=== PATIENT | male | born 1945 | race Caucasian/White ===

== ENCOUNTER → 2019-12-10 | Outpatient (CLI) | payer OTHER ==
[~2019-12-10] MED LIST: AZOPT OPHTH1 %/10 M1 EA. EYE; CLARITIN10 M3 PO; COUMADIN7.5 MG PO; D3-200050 MCG PO; DORYX MPC120 MG PO; FLOMAX0.4 MG PO; GLUCOPHAGE1000 MG PO; ISORDIL10 MG PO; KLOR-CON M2020 MEQ PO; LANTUS SUBQ; LIPITOR40 MG PO; LISINOPRIL2.5 MG PO; PLAVIX 75 MG TA75 MG PO; PRADAXA150 MG PO; PREDNISONE 5 MG5 M1 PO; PROAIR HFA8.5 GM INH; SYMBICORT80 MCG/4.1 INH; TOPROL XL25 MG PO
[2019-12-10 09:02] LABS: HEMATOCRIT 45.2 % (42.0-52.0); HEMOGLOBIN 14.6 gm/dL (14.0-18.0); MCHC 32.3 g/dL (28.0-37.0); MCV 89.9 fL (80.0-100.0); RBC 5.02 mil/uL (4.50-6.00); WBC 12.8 thou/uL (4.0-11.0)
[2019-12-10 09:17] LABS: ALBUMIN 3.7 g/dL (3.4-5.0); CREATININE 1.1 mg/dL (0.7-1.3); POTASSIUM 4.2 mmol/L (3.5-5.1); TOTAL BILIRUBIN 0.5 mg/dL (<0.1-1.0); TOTAL PROTEIN 6.9 g/dL (6.4-8.2)
== END ==
LOC: CAT 08:15
PROVIDERS: Internal Medicine Cardiovascular Disease
DX: J43.9 Emphysema, unspecified (principal); M47.814 Spondylosis without myelopathy or radiculopathy, thoracic region; I25.10 Atherosclerotic heart disease of native coronary artery without angina pectoris; J98.4 Other disorders of lung; Z90.49 Acquired absence of other specified parts of digestive tract

== ENCOUNTER 2019-12-14 06:30 | Observation (INO) | payer OTHER ==
[~2019-12-14] VITALS: Ht 170.2 cm; Wt 96.6 kg
[2019-12-14] VITALS (14 sets, daily range): BP systolic 105–144; BP diastolic 51–73
--- NOTE | ~2019-12-14 | P ---
[facility] [place] [address] PROCEDURE REPORT Name: PAMELAL VELIZ Room #: 201-P [facility]..#: [id number] Admission: 12/14/19 Attend Phys: Gonzalez Carvalho MD Discharge: Date of : 47 Report #: [id number] THIS REPORT FOR: cc: Cipriano Arreola MD,Cipriano Carvalho,Gonzalez Gao MD ~ CC: Cipriano Carvalho DATE OF SERVICE: 12/14/2019 HISTORY: The patient is a 74-year-old male with history of coronary artery disease, COPD as well as AFib/atrial flutter, here for ablation. PROCEDURES PERFORMED: 1. Atrial fibrillation ablation, CPT code 50658. 2. 3D mapping, CPT code 90803. 3. Arterial line placement, CPT code 58606. 4. Intracardiac echo, CPT code 20490. 5. Second pathway ablation, CPT code 15980. ANESTHESIA: The patient underwent general anesthesia with no anesthesia related complications. They could not obtain an arterial line; therefore, I placed one. DESCRIPTION OF PROCEDURE: The patient underwent informed consent, where we discussed the details of the procedure including the risks, which include but not limited to bleeding, infection, vascular damage, cardiac perforation, stroke and RI. He understood these risks and is willing to proceed. The patient was brought to the EP laboratory in a fasting and sedated state, prepped and draped in a sterile fashion. Next, I injected lidocaine at the right groin region and obtained access to the right femoral vein x 3 and the right femoral artery x 1. In the right femoral artery, I placed a 5-Malian short sheath for arterial blood pressure monitoring. In the right femoral vein, I placed an 8, 9 and 7-Malian short sheath using the modified Seldinger technique. Next, under fluoroscopy, I placed a decapolar catheter easily in the coronary sinus. Of note, this would fall out why easily throughout the case. Next, ice catheter was placed in the right atrium and I created a CartoSound map. 3D geometry with visualization of the two left and two right-sided pulmonary veins. He did have a very large right inferior pulmonary vein. The patient was systemically heparinized and a transseptal was performed using an SL1 sheath and Lafayette needle. SL1 sheath easily advanced into the left atrium and I exchanged this for the cryo sheath. Via the cryo sheath I placed a [employer] White Lasso catheter and created a detailed 3D geometry of the left [address] [address] PROCEDURE REPORT Name: PAMELLA VELIZ Room #: 201-P [facility] M..#: [id number] Admission: 12/14/19 Attend Phys: Gonzalez Carvalho MD Discharge: Date of : 47 Report #: [id number] atrium as well as a voltage map. I then exchanged for my cryo balloon and started isolating the pulmonary veins. Of note, at baseline, the patient presented in AFib/atrial flutter with an atrial cycle length of 235 milliseconds, QRS duration 125 milliseconds with a right-bundle branch block morphology, QRS duration of 470 milliseconds. Next, I started by isolating the left superior pulmonary vein and performed a 140 second freeze followed by a 170 second freeze. I came off early on both freezes as I reached -55 degrees. After the first freeze, it appeared that we had isolated the vein. I then turned my attention to the left inferior pulmonary vein. I performed a 4-minute freeze followed by a 3-minute freeze. While isolating the left inferior pulmonary vein, the patient's atrial fibrillation organized and terminated to sinus rhythm. I then turned attention to the right-sided veins, I performed phrenic nerve pacing utilizing the decapolar catheter placed up at the subclavian vein. The right superior pulmonary vein underwent a 110 second followed by 4-minute freeze. The vein isolated within 30 seconds of the first freeze, but I came off early as attempts were -54 degrees. The right inferior pulmonary vein underwent a 110 second freeze followed by 150-second freeze, the vein isolated during the first freeze within 45 seconds. Of note, this was quite a large vein and the balloon did basically go into the vein. I came off early during the first freeze as the temps were reaching -54 degrees. I then performed a voltage map with my Lasso catheter and this demonstrated that we have created a wide circumferential ablation of all pulmonary veins. ATRIAL FLUTTER ABLATION. HISTORY: We then decided to perform atrial flutter ablation. I utilized an 8-mm ablation catheter via a ramp sheath. Pre-ablation, the transisthmus conduction time was 75 milliseconds. Post-ablation, the transisthmus conduction time increased to 145 milliseconds. Ablation was performed at 70 gutierrez and 60 degrees and performed a continuous drag lesion until there was evidence of bidirectional block. Post-ablation an EP study was performed. AV block was noted at 500 milliseconds, AV shamika ERP was noted at 430 milliseconds at a [address] cycle length. Post-ablation, the patient was in sinus rhythm. There were no procedure related complications. The patient received systemic protamine and once ACT was within acceptable range, catheters and sheaths were pulled and hemostasis was obtained. CONCLUSIONS: 1. Successful AFib ablation with wide circumferential ablation of the pulmonary veins. 2. Successful atrial flutter ablation with evidence of bidirectional block. By: [id number] Gonzalez Carvalho MD /nitin
[2019-12-14 07:16] LABS: ABSOLUTE NEUTROPHILS 8.4 thou/uL (1.4-8.2); BASOPHILS 0.7 % (0.0-2.0); EOSINOPHILS 1.7 % (0.0-3.0); HEMATOCRIT 46.3 % (42.0-52.0); HEMOGLOBIN 14.6 gm/dL (14.0-18.0); LYMPHOCYTES 19.5 % (24.0-44.0); MCH 28.8 pg (26.0-34.0); MCHC 31.6 g/dL (28.0-37.0); MONOCYTES 11.7 % (1.0-8.0); PLATELET COUNT 296 thou/uL (150-400); POLYS 66.4 % (36.0-66.0); RBC 5.09 mil/uL (4.50-6.00); RDW 17.1 % (10.5-14.5); WBC 12.7 thou/uL (4.0-11.0)
[2019-12-14 07:20] LABS: CALCIUM 9.4 mg/dL (8.5-10.1); CREATININE 1.5 mg/dL (0.7-1.3); POTASSIUM 3.9 mmol/L (3.5-5.1)
[2019-12-14 07:26] LABS: ALBUMIN 3.6 g/dL (3.4-5.0); TOTAL BILIRUBIN 0.6 mg/dL (<0.1-1.0); TOTAL PROTEIN 7.4 g/dL (6.4-8.2)
[2019-12-14 07:32] LABS: INR 1.1; PROTIME 11.4 Seconds (9.3-11.4)
[2019-12-14] MEDS ORDERED: PROAIR HFA8.5 GM INH (07:44)
[2019-12-14] MEDS ORDERED: LIPITOR40 MG PO (07:44)
[2019-12-14] MEDS ORDERED: SYMBICORT80 MCG/4.1 INH (07:45)
[2019-12-14] MEDS ORDERED: AZOPT OPHTH1 %/10 M1 EA. EYE (07:45)
[2019-12-14] MEDS ORDERED: D3-200050 MCG PO (07:46)
[2019-12-14] MEDS ORDERED: PLAVIX 75 MG TA75 MG PO (07:47)
[2019-12-14] MEDS ORDERED: DORYX MPC120 MG PO (07:47)
[2019-12-14] MEDS ORDERED: LANTUS SUBQ (07:48)
[2019-12-14] MEDS ORDERED: ISORDIL10 MG PO (07:49)
[2019-12-14] MEDS ORDERED: GLUCOPHAGE1000 MG PO (07:50)
[2019-12-14] MEDS ORDERED: LISINOPRIL2.5 MG PO (07:50)
[2019-12-14] MEDS ORDERED: CLARITIN10 M3 PO (07:50)
[2019-12-14] MEDS ORDERED: TOPROL XL25 MG PO (07:51)
[2019-12-14] MEDS ORDERED: PREDNISONE 5 MG5 M1 PO (07:51)
[2019-12-14] MEDS ORDERED: KLOR-CON M2020 MEQ PO (07:51)
[2019-12-14] MEDS ORDERED: COUMADIN7.5 MG PO (07:52)
[2019-12-14] MEDS ORDERED: FLOMAX0.4 MG PO (07:52)
[2019-12-14] MEDS ORDERED: PRADAXA150 MG PO (07:54)
--- NOTE | 2019-12-14 14:34 | NUR ---
ASSUMED CARE OF PT AT APPROX 1330 FROM [facility] AFTER AFIB/AFLUTTER ABLATION. PT RESTING, NO C/O OF GROIN PAIN. DRESSING IS DCI, SITE REMAINS SOFT WITHOUT HEMATOMA OR BRUISING. AND SISTER AT BEDSIDE. FLAHERTY IN PLACE FOR PROCEDURE, PT REPORTS BURNING AND HESITATION FOR ONE MONTH. HEMOSTASIS AT 1200, BEDREST DONE AT 1800. WILL CONTINUE TO MONITOR AND FOLLOW POC.
--- NOTE | 2019-12-14 18:26 | NUR ---
PT BEDREST COMPLETE. R GROIN SITE CDI, REMAINS SOFT, WITH NO HEMATOMA OR BLEEDING. PT A&OX4. NO C/O PAIN OR SOA. FLAHERTY REMAINS IN PLACE. WILL CONTINUE TO MONITOR AND FOLLOW POC.
--- NOTE | 2019-12-14 18:30 | NUR ---
PT CARE ASSUMED APPROXIMATELY 1400. PT ASSESSMENT CHARTED. PT MEDICATION CHARTED. PT HAS RIGHT CHEST INCISION DUE TO PACEMAKER PLACEMENT, PT IS LEFT HANDED. 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 PT IS IN GOOD SPIRITS. VSS.
[2019-12-15] VITALS: BP 144/73
[2019-12-15 00:45] VITALS: BP 127/69
--- NOTE | 2019-12-15 04:15 | NUR ---
ASSESSEMENT DOCUMENTED.PT BEEN RESTING IN NO ACUTE DISTRESS.A/OX4.VSS.S/P AFIB/AFLUTTER ABLATION,ON MONITOR SR/BBB/PVCS,HR IN 70S.DENIES ANY NEEDS AT THIS TIME.RIGHT GROIN INTACT W/O HEMATOMA.POC IS TO DSICHARGE TO HOME TODAY.
[2019-12-15 04:45] VITALS: BP 128/76
[2019-12-15 09:15] VITALS: BP 128/76
== END 2019-12-15 09:53 | disposition home or self-care (01) ==
LOC: CATH 06:30 → 2N 13:20 → CATH 14:23 → ENTRNSPT 12-15 09:47 → EDTRNSPTSTS 12-15 09:50 → 2N 12-15 09:53
PROVIDERS: ADMIT Internal Medicine Cardiovascular Disease
DX: I48.0 Paroxysmal atrial fibrillation (principal); I25.10 Atherosclerotic heart disease of native coronary artery without angina pectoris; J44.9 Chronic obstructive pulmonary disease, unspecified; I48.92 Unspecified atrial flutter; I25.2 Old myocardial infarction; I10 Essential (primary) hypertension; F17.200 Nicotine dependence, unspecified, uncomplicated; E11.9 Type 2 diabetes mellitus without complications
CPT/HCPCS: 62110; 62900; 65020; 65040; 65130; 70005